=== PATIENT | male | born 1985 | race Two or more races ===

== ENCOUNTER 2022-02-22 11:31 | Emergency (ER) ==
[2022-02-22] MEDS ORDERED: Lidocaine 1% (PF) 30 ML VIAL ONE (12:53)
== END 2022-02-22 14:00 | disposition home or self-care (01) ==
LOC: CSHERS 11:31
DX: L03.211 Cellulitis of face (principal); L02.01 Cutaneous abscess of face
CPT/HCPCS: 10060; J2001

== ENCOUNTER 2024-03-21 10:40 | Emergency (ER) | payer SELFPAY | END 2024-03-21 11:17 | disposition home or self-care (01) | LOC: CSHERS 10:40 | DX: L72.3 Sebaceous cyst (principal); L72.0 Epidermal cyst | CPT/HCPCS: 99282 ==